=== PATIENT | male | born 1995 | race African-American/Black ===

== ENCOUNTER 2024-12-08 04:34 | Emergency (ER) | payer SELFPAY ==
[2024-12-08] MEDS ORDERED: ONDANSETRON 4 MG/2 ML VIAL ONE (05:04)
[2024-12-08] MEDS ORDERED: FAMOTIDINE 20 MG/2 ML VIAL IV ONE (05:05)
[2024-12-08] MEDS ORDERED: NA CHLORIDE 0.9% 1,000 ML ONE (05:05)
[2024-12-08 05:18] LABS: Absolute Basophils 0.1 K/uL (0-0.5); Absolute Eosinophils 0.1 K/uL (0-0.5); Absolute Lymphocytes (CBC) 2.4 K/uL (0.7-4.9); Absolute Monocytes 0.5 K/uL (0.1-1.3); Basophils % 0.6 % (0-1.3); Eosinophils % 0.8 % (0-4.4); Hematocrit 44.1 % (39.6-49.0); Hemoglobin 15.1 g/dL (13.6-17.9); Lymphocytes % 26.9 % (15.3-44.8); MCH 31.2 pg (27.0-35.0); MCHC 34.2 g/dL (32.0-36.0); MCV 91.3 fL (80-100); MPV 7.9 fL (7.6-11.3); Monocytes % 5.1 % (3.3-12.3); Neutrophils % 66.6 % (41.7-73.7); Platelets 198 thou/uL (152-406); RBC Red Blood Cell Count 4.83 M/uL (4.33-5.43); Red Cell Distribution Width 14.1 % (12.1-15.2)
--- NOTE | 2024-12-08 06:37 | RAD REPORT ---
EXAMINATION: CT ABDOMEN PELVIS WITH IV CONTRAST CLINICAL INDICATION: Male, 29 years old.Abd pain;Nausea / vomiting TECHNIQUE: CT abdomen and pelvis was performed, after the administration of IV contrast, as per [facility] protocol. Axial, sagittal and coronal reconstructions were obtained. One or more of the following dose reduction techniques were used: Automated exposure control, adjustment of the mA and/o r kV according to patient size, and/or iterative reconstruction. Unless otherwise specified, incidental findings do not require dedicated imaging follow-up. [id number]. COMPARISON: No prior exam. FINDINGS: LOWER CHEST: No acute process identified.Normal heart size. UPPER GI: No significant focal abnormality. LIVER: No significant focal abnormality. GALLBLADDER/BILE DUCTS: No biliary ductal dilatation. PANCREAS: No mass, ductal dilation, or charlie-pancreatic fluid. SPLEEN: Unremarkable. ADRENALS: No adrenal masses. KIDNEYS AND URETERS: No hydronephrosis.No suspicious renal mass. ABDOMINAL AORTA AND OTHER VESSELS: Normal caliber aorta and IVC. PERITONEUM: No abnormal free fluid. No free air. LYMPH NODES: No pathologic lymphadenopathy. ABDOMINAL WALL: Unremarkable SMALL BOWEL/COLON: Small bowel has normal course and caliber. No colonic wall thickening or pericolon ic inflammatory changes.Normal appendix. URINARY BLADDER: Underdistended but grossly unremarkable. REPRODUCTIVE ORGANS: No pathologic process. MUSCULOSKELETAL: No acute or suspicious osseous abnormality. ADDITIONAL FINDINGS: None. IMPRESSION: No acute findings in the abdomen or pelvis. Normal appendix. Electronically signed by: Claude Lane MD 12/08/2024 06:02 AM [facility] Due to temporary technical issues with the PACS/[employer] reporting system, reports are being dada d by the in-house radiologist without review as a courtesy to ensure prompt reporting the interpreting radiologist is fully responsible for the content of the report. Transcribed Date/Time: 12/08/2024 6:37 AM
--- NOTE | 2024-12-08 07:05 | ER ---
Nurse's Notes [facility] Name: Gaston Cleveland Age: 29 yrs Sex: Male : 1995 Arrival Date: 12/08/2024 Time: 04:34 Bed 20 Private MD: Diagnosis: Nausea with vomiting, unspecified;Abdominal pain, unspecified Presentation: 12/08 04:35 Chief complaint: EMS states: MID EPIGASTRIC PAIN, NAUSEA, AND VOMITING , SAW A DROP OF ha1 BLOOD IN THE VOMIT. 04:35 Coronavirus screen: Client denies travel out of the [place] in the last 14 days. Ebola ha1 Screen: No symptoms or risks identified at this time. Initial Sepsis Screen: Does the patient meet any 2 criteria? No. Patient's initial sepsis screen is negative. Does the patient have a suspected source of infection? No. Patient's initial sepsis screen is negative. Risk Assessment: Do you want to hurt yourself or someone else? Patient reports no desire to harm self or others. Onset of symptoms was December 08, 2024. 04:35 Method Of Arrival: EMS: [facility] ha1 04:35 Acuity: KRISTYN 3 ha1 Triage Assessment: 04:35 General: Appears comfortable, Behavior is calm, cooperative. Pain: Complains of pain in ha1 epigastric area Pain radiates to umbilical area Pain currently is 8 out of 10 on a pain scale. Neuro: Level of Consciousness is awake, alert, obeys commands, Oriented to person, place, time, situation. Cardiovascular: Capillary refill < 3 seconds Patient's skin is warm and dry. Respiratory: Airway is patent Respiratory effort is even, unlabored, Respiratory pattern is regular, symmetrical. GI: Abdomen is flat, non-distended, Abd is soft and non tender X 4 quads. Reports epigastric pain, nausea, vomiting. : No signs and/or symptoms were reported regarding the genitourinary system. Derm: Skin is normal. Musculoskeletal: Circulation, motion, and sensation intact. Range of motion: intact in all extremities. Historical: - Allergies: 04:41 No Known Allergies; ha1 - PMHx: 04:41 None; ha1 - Immunization history:: Adult Immunizations up to date. - Infectious Disease History:: Denies. - Social history:: Smoking status: Reported history of juuling and/or vaping. - Family history:: not pertinent. - Hospitalizations: : No recent hospitalization is reported. Screenin:44 [facility] ED Fall Risk Assessment (Adult) History of falling in the last 3 months, ha1 including since admission No falls in past 3 months (0 pts) Confusion or Disorientation No (0 pts) Intoxicated or Sedated No (0 pts) Impaired Gait No (0 pts) Mobility Assist Device Used No (0 pt) Altered Elimination No (0 pt) Score/Fall Risk Level 0 - 2 = Low Risk Oriented to surroundings, Maintained a safe environment, Educated pt \T\ family on fall prevention, incl call for assistance when getting out of bed, Hourly rounding (assess needs \T\ fall precautionary measures) done. Abuse screen: Denies threats or abuse. Denies injuries from another. Nutritional screening: No deficits noted. Tuberculosis screening: No symptoms or risk factors identified. Assessment: 04:35 Reassessment: see triage assessment. GI: Abdomen is round non-distended, Reports ha1 epigastric pain, nausea, vomiting. 05:40 Reassessment: Patient and/or family updated on plan of care and expected duration. Pain ha1 level reassessed. Patient is alert, oriented x 3, equal unlabored respirations, skin warm/dry/pink. Patient states feeling better. Patient states symptoms have improved. 06:20 Reassessment: Patient and/or family updated on plan of care and expected duration. Pain ha1 level reassessed. Patient is alert, oriented x 3, equal unlabored respirations, skin warm/dry/pink. 07:40 Reassessment: Awaiting NS bolus to complete before d/c home per VO. . Neuro: Level aa5 of Consciousness is awake, alert, obeys commands, Oriented to person, place, time, situation. Respiratory: Airway is patent Respiratory effort is even, unlabored, Respiratory pattern is regular, symmetrical. Derm: Skin is dry, Skin is normal, Skin temperature is warm. 08:10 Neuro: Level of Consciousness is awake, alert, obeys commands, Oriented to person, aa5 place, time, situation. Respiratory: Airway is patent Respiratory effort is even, unlabored, Respiratory pattern is regular, symmetrical. Derm: Skin is dry, Skin is normal, Skin temperature is warm. Vital Signs: 04:35 BP 127 / 83; Pulse 53; Resp 17 S; Temp 97.4; Pulse Ox 100% ; Weight 63.5 kg; Height 6 ha1 ft. 0 in. ; 05:20 BP 119 / 95; Pulse 52; Resp 18 S; Pulse Ox 99% on R/A; ha1 06:20 BP 109 / 68; Pulse 52; Resp 17 S; Pulse Ox 99% on R/A; ha1 07:45 BP 121 / 75; Pulse 58; Resp 16 S; Pulse Ox 99% on R/A; aa5 04:35 Body Mass Index 18.99 (63.50 kg, 182.88 cm) ha1 ED Course: 04:35 Patient arrived in ED. [email or web address] 04:35 Patient has correct armband on for positive identification. Placed in gown. Bed in low ha1 position. Call light in reach. Side rails up X 1. 04:35 Arm band placed on right wrist. ha1 04:36 Delgado Burciaga MD is Attending Physician. rn 04:38 Jennifer Talbert RN is Primary Nurse. ha1 04:41 Triage completed. ha1 05:11 Inserted saline lock: 22 gauge in right antecubital area, using aseptic technique. oe Blood collected. Flushed with 10 mL NS. 05:15 CBC with Diff Sent. ha1 05:15 CMP Sent. ha1 05:15 Lipase Sent. ha1 05:29 CT Abd/Pelvis - IV Contrast Only In Process Unspecified. EDMS 06:06 No provider procedures requiring assistance completed. ha1 06:08 Provided Education on: need for admit . ha1 08:02 IV discontinued, intact, bleeding controlled, No redness/swelling at site. Pressure aa5 dressing applied. Administered Medications: 05:13 Drug: Ondansetron IVP 4 mg IVP once; over 2 minutes Route: IVP; Site: right antecubital;ha1 05:40 Follow up: Response: No adverse reaction; Marked relief of symptoms ha1 05:13 Drug: NS 0.9% IV 1000 ml IV at 1 bolus Per protocol; to be given as a bolus over 60 ha1 minutes Route: IV; Rate: 1 bolus; Site: right antecubital; 08:02 Follow up: IV Status: Completed infusion; IV Intake: 1000ml aa5 08:02 Follow up: IV Status: Completed infusion; IV Intake: 1000ml aa5 08:03 Follow up: IV Status: Completed infusion; IV Intake: 1000ml aa5 05:15 Drug: Famotidine IVP 20 mg IVP once; dilute with 10 mL 0.9% NaCl; give over 2 minutes ha1 Route: IVP; Site: right antecubital; 05:40 Follow up: Response: No adverse reaction; Marked relief of symptoms ha1 07:42 Drug: Promethazine IVP 12.5 mg IVP once Route: IVP; Site: right antecubital; aa5 08:03 Follow up: Response: No adverse reaction aa5 Medication: 06:07 VIS not applicable for this client. ha1 Intake: 08:02 IV: 1000ml; Total: 1000ml. aa5 08:02 IV: 1000ml; Total: 2000ml. aa5 Outcome: 07:04 Discharge ordered by . rn 08:10 Discharged to home ambulatory, with co-worker aa5 08:10 Condition: stable 08:10 Discharge instructions given to patient, Instructed on discharge instructions, follow up and referral plans. medication usage, Demonstrated understanding of instructions, follow-up care, medications, Prescriptions given X 3, 08:11 Patient left the ED. eb Signatures: Dispatcher [employer] EDMS Delgado Burciaga MD MD rn Calderon, Audri RN RN aa5 Harvey Montano Elizabeth eb Jeffries, Jennifer [email or web address] Jennifer Talbert RN RN ha1 Corrections: (The following items were deleted from the chart) 04:44 04:35 BP 127 / 83; Pulse 53bpm; Resp 100bpm; Spontaneous; Pulse Ox 100%; Temp 97.4F; ha1 63.5 kg; Height 6 ft.; BMI: 18.9; ha1 04:45 04:35 Chief complaint: EMS states: MID EPIGASTRIC PAIN, NAUSEA, AND VOMITING 1 1 06:09 06:07 Condition: stable [facility] 06:09 06:07 Admitted to Tele accompanied by david, via stretcher, room 408, with chart, [facility] 06:09 06:07 Instructed on the need for admit, Demonstrated understanding of instructions, [facility] ha1 06:28 06:06 Patient admitted, IV remains in place. [facility] 07:45 07:45 Promethazine IVP 12.5 mg IVP in right antecubital aa5 aa5 09:51 08:03 IV Status: Completed infusion; IV Intake: 1000ml aa5 aa5
--- NOTE | 2024-12-08 07:05 | EDPHYS ---
Physician Documentation [facility] Name: Gaston Cleveland Age: 29 yrs Sex: Male : 1995 Arrival Date: 12/08/2024 Time: 04:34 Bed 20 Private MD: ED Physician Delgado Burciaga HPI: 12/08 05:30 This 29 yrs old Male presents to ER via EMS with complaints of Nausea/Vomiting. rn 05:30 The patient presents to the emergency department with nausea, vomiting, abdominal pain. rn Onset: The symptoms/episode began/occurred just prior to arrival. Possible causes: unknown. The symptoms are aggravated by nothing. The symptoms are alleviated by nothing. Associated signs and symptoms: Pertinent positives: abdominal pain, nausea, vomiting, Pertinent negatives: diarrhea, fever, GI bleeding. Severity of symptoms: At their worst the symptoms were mild in the emergency department the symptoms are unchanged. The patient has not experienced similar symptoms in the past. Patient reports had Glass's his last meal, approximately 10 hours later began to feel sick, experienced nausea and vomiting x 3 episodes while at work. First episode had small amount of blood in it. Patient does not take any blood thinners. Patient reports epigastric abdominal pain that is nonradiating. No fever or chills. No chronic medical problems. No diarrhea. No sick contacts. No syncope.. Historical: - Allergies: 04:41 No Known Allergies; ha1 - PMHx: 04:41 None; ha1 - Immunization history:: Adult Immunizations up to date. - Infectious Disease History:: Denies. - Social history:: Smoking status: Reported history of juuling and/or vaping. - Family history:: not pertinent. - Hospitalizations: : No recent hospitalization is reported. ROS: 05:30 Constitutional: Negative for fever, chills, and weight loss, Cardiovascular: Negative rn for chest pain, palpitations, and edema, Respiratory: Negative for shortness of breath, cough, wheezing, and pleuritic chest pain, Abdomen/GI: Positive for epigastric abdominal pain with nausea and vomiting MS/Extremity: Negative for injury and deformity, Neuro: Positive for generalized weakness and feelings of lightheadedness Exam: 05:30 Constitutional: This is a well developed, well nourished patient who is awake, alert, rn and in no acute distress. ENT: Dry mucous membranes Cardiovascular: Bradycardic, regular. No pulse deficits. Respiratory: No increased work of breathing, no retractions or nasal flaring. Abdomen/GI: Soft, mid abdominal and epigastric tenderness. No rebound or guarding. No distention. No peritoneal signs. Neuro: Awake and alert, GCS 15 Vital Signs: 04:35 BP 127 / 83; Pulse 53; Resp 17 S; Temp 97.4; Pulse Ox 100% ; Weight 63.5 kg; Height 6 ha1 ft. 0 in. ; 05:20 BP 119 / 95; Pulse 52; Resp 18 S; Pulse Ox 99% on R/A; ha1 06:20 BP 109 / 68; Pulse 52; Resp 17 S; Pulse Ox 99% on R/A; ha1 07:45 BP 121 / 75; Pulse 58; Resp 16 S; Pulse Ox 99% on R/A; aa5 04:35 Body Mass Index 18.99 (63.50 kg, 182.88 cm) ha1 MDM: 04:36 Medical Screening Exam initiated rn 07:02 Differential diagnosis: Nonspecific abd pain, gastritis, cholecystitis, pancreatitis, rn appendicitis, diverticulitis, viral gastroenteritis, gastroenteritis. 07:02 Data reviewed: vital signs, nurses notes, lab test result(s), radiologic studies, CT rn scan, and as a result, I will discharge patient. Counseling: I had a detailed discussion with the patient and/or guardian regarding the historical points, exam findings, and any diagnostic results supporting the discharge/admit diagnosis, lab results, radiology results, the need for outpatient follow up, to return to the emergency department if symptoms worsen or persist or if there are any questions or concerns that arise at home. 07:03 Response to treatment: the patient's symptoms have markedly improved after treatment, rn and as a result, I will discharge patient. Special discussion: Based on the patient's Hx, exam, and Dx evaluation, there is no indication for emergent surgery or inpatient Tx. It is understood by the patient/guardian that if the Sx's persist or worsen they need to return immediately for re-evaluation. I discussed with the patient/guardian in detail that at this point there is no indication for admission to the hospital. It is understood, however, that if the symptoms persist or worsen the patient needs to return immediately for re-evaluation. ED course: No acute findings in CT abdomen pelvis. No longer throwing up. Patient reports still reports minor nausea and will give Phenergan. Will complete IV fluid bolus and discharge home. Possible food poisoning versus enteritis or early infection. Patient chooses to go back to work and does not want to miss work. I have personally reviewed all of the results, including but not limited to blood tests and imaging deemed necessary to safely discharge this patient at this time. All results given to and printed out for patient. I personally went over all the results with the patient and answered all questions. Patient will follow-up with PCP and or specialist as discussed. Return precautions given and understood.. 07:07 ED course: Normal WBC. Lab called and need recollect on lipase and CMP. Spoke to rn patient about this and joint decision made to not send repeat labs given otherwise healthy, not on drinker and no signs of cholelithiasis to indicate pancreatitis. CT imaging negative for pancreatitis findings. Will discharge home per patient's wishes with symptomatic treatment and return precautions.. 12/08 04:57 Order name: CBC with Diff; Complete Time: 05:56 12/08 04:57 Order name: CMP; Complete Time: 07:15 rn 12/08 04:57 Order name: Lipase; Complete Time: 07:15 12/08 04:57 Order name: CT Abd/Pelvis - IV Contrast Only; Complete Time: 06:39 rn 12/08 04:57 Order name: IV Saline Lock; Complete Time: 05:15 12/08 04:57 Order name: Labs collected and sent; Complete Time: 05:15 12/08 06:42 Order name: Labs - recollect needed: recollect chemistries/ hemolyzed per Donna thompson Complete Time: 06:46 Administered Medications: 05:13 Drug: Ondansetron IVP 4 mg IVP once; over 2 minutes Route: IVP; Site: right antecubital;ha1 05:40 Follow up: Response: No adverse reaction; Marked relief of symptoms ha1 05:13 Drug: NS 0.9% IV 1000 ml IV at 1 bolus Per protocol; to be given as a bolus over 60 ha1 minutes Route: IV; Rate: 1 bolus; Site: right antecubital; 08:02 Follow up: IV Status: Completed infusion; IV Intake: 1000ml aa5 08:02 Follow up: IV Status: Completed infusion; IV Intake: 1000ml aa5 08:03 Follow up: IV Status: Completed infusion; IV Intake: 1000ml aa5 05:15 Drug: Famotidine IVP 20 mg IVP once; dilute with 10 mL 0.9% NaCl; give over 2 minutes ha1 Route: IVP; Site: right antecubital; 05:40 Follow up: Response: No adverse reaction; Marked relief of symptoms ha1 07:42 Drug: Promethazine IVP 12.5 mg IVP once Route: IVP; Site: right antecubital; aa5 08:03 Follow up: Response: No adverse reaction aa5 Disposition Summary: 12/08/24 07:04 Discharge Ordered Notes: Location: Home rn Problem: new rn Symptoms: have improved rn Condition: Stable rn Diagnosis - Nausea with vomiting, unspecified rn - Abdominal pain, unspecified rn Followup: rn - With: Private Physician - When: As needed - Reason: Recheck today's complaints, Re-evaluation by your physician Discharge Instructions: - Discharge Summary Sheet rn - Abdominal Pain, Adult rn - Nausea and Vomiting, Adult rn Forms: - Medication Reconciliation Form rn - Antibiotic rn testing - Prescription Opioid Use rn - Patient Portal Instructions rn - Leadership Thank You Letter rn - Work release form ap3 Prescriptions: - ondansetron 4 mg Oral Tablet,disintegrating - take 1 tablet ORAL route every 8 hours As needed; 10 tablet; Refills: 0, rn Product Selection Permitted - Augmentin 875-125 mg Oral Tablet - take 1 tablet ORAL route every 12 hours for 10 days; 20 tablet; Refills: 0, rn Product Selection Permitted - Protonix 40 mg Oral Tablet - take 1 tablet ORAL route once daily; 30 tablet; Refills: 0, Product Selection rn Permitted Signatures: Dispatcher [employer] EDMS Delgado Burciaga MD MD rn Calderon, Audri RN RN aa5 Radha Aldana Heidy RN RN ha1 Corrections: (The following items were deleted from the chart) 04:57 04:57 CBC+H.LAB.BRZ ordered. EDMS EDMS 04:57 04:57 COMPREHENSIVE METABOLIC PANEL+C.LAB.BRZ ordered. EDMS EDMS 04:57 04:57 LIPASE+C.LAB.BRZ ordered. EDMS EDMS 04:57 04:57 Abdomen Pelvis W Con+CT.RAD.BRZ ordered. EDMS EDMS
[2024-12-08 07:15] LABS: Albumin 4.2 g/dL (3.4-5.0); Albumin/Globulin Ratio 1.3 (1.1-1.8); Anion Gap 6.4 mEq/L (5.0-15.0); Bilirubin Total 0.9 mg/dL (0.2-1.0); Globulin 3.3 g/dL (2.3-3.5); Potassium 4.4 mEq/L (3.5-5.1); Protein, Total 7.5 g/dL (6.4-8.2)
[2024-12-08] MEDS ORDERED: PROMETHAZINE INJ 25 MG/ML AMP ONE (07:35)
[2024-12-08 08:20] VITALS: TEMP 97.4
[2024-12-08 08:26] VITALS: O2SAT 99
[2024-12-08 08:32] VITALS: BP 109/68
== END 2024-12-08 08:11 | disposition home or self-care (01) ==
LOC: ER 04:34
DX: R11.2 Nausea with vomiting, unspecified (principal); R10.13 Epigastric pain
CPT/HCPCS: 36415; 74177; 80053; 83690; 85025; 96361; 96374; 96375; 99284; J2405; J2550; J7030; Q9967